=== PATIENT | female | born 1990 | race African-American/Black ===

== ENCOUNTER 2018-06-18 13:08 | Emergency (ER) | payer OTHER ==
[2018-06-18] MEDS ORDERED: Sodium Chloride 0.9% 500 ML IV ONE (13:32)
[2018-06-18] MEDS ORDERED: DiphenhydrAMINE 50 mg/ml Inj IVP STA (13:32)
[2018-06-18 13:40] VITALS: O2SAT 100
--- NOTE | 2018-06-18 13:40 | C.PDOC ---
History Of Present Illness Patient presents to ED c/o left sided headache, similar to pior migraines, since yesterday. Headache is associated with light sensitivity. Patient tried taking Tylenol yesterday without relief. She is currently 12 weeks , . She denies abdominal or pelvic pain, vaginal bleeding/discharge, nausea/ vomiting, dysuria/hematuria, dizziness, visual changes. Time Seen by Provider: 06/18/18 13:32 Chief Complaint (Nursing): Headache History Per: Patient History/Exam Limitations: no limitations Onset/Duration Of Symptoms: Days (2) Current Symptoms Are (Timing): Still Present Severity: Moderate Quality: "Pain" Preceeding Symptoms: Known Migraine Symptoms Associated Symptoms: Photophobia. denies: Blurred Vision, Nausea, Vomiting, Extremity Weakness Past Medical History Reviewed: Historical Data, Nursing Documentation, Vital Signs Vital Signs: Last Vital Signs Temp 98.7 F 06/18/18 13:28 Pulse 88 06/18/18 13:28 Resp 20 06/18/18 13:28 BP 95/62 L 06/18/18 13:28 Pulse Ox 100 06/18/18 13:42 - Medical History PMH: Migraine Surgical History: No Surg Hx Family History: States: No Known Family Hx - Social History Hx Alcohol Use: No Hx Substance Use: No - Immunization History Hx Tetanus Toxoid Vaccination: No Hx Influenza Vaccination: No Hx Pneumococcal Vaccination: No Review Of Systems Constitutional: Negative for: Fever, Chills Cardiovascular: Negative for: Chest Pain Respiratory: Negative for: Shortness of Breath Gastrointestinal: Negative for: Nausea, Vomiting, Abdominal Pain Genitourinary: Negative for: Dysuria, Hematuria, Vaginal Discharge, Vaginal Bleeding Neurological: Positive for: Headache. Negative for: Weakness, Numbness, Change in Speech, Confusion, Seizures, Altered Mental Status, Dizziness Physical Exam - Physical Exam Appears: Well, Non-toxic, In Acute Distress (in mild pain ) Skin: Normal Color, Warm, Dry, No Rash Head: Atraumatic, Normacephalic Eye(s): bilateral: Normal Inspection, PERRL, EOMI Oral Mucosa: Moist Cardiovascular: Rhythm Regular Respiratory: Normal Breath Sounds, No Rales, No Rhonchi, No Wheezing Gastrointestinal/Abdominal: Normal Exam, Bowel Sounds, Soft, No Tenderness Extremity: Normal ROM Neurological/Psych: Oriented x3, Normal Speech, Normal Cognition Gait: Steady ED Course And Treatment O2 Sat by Pulse Oximetry: 100 (RA) Pulse Ox Interpretation: Normal Progress Note: Patient given IV NS bolus, IV Reglan and IV Benadryl. UA ordered and reviewed. Disposition - Disposition Disposition: HOME/ ROUTINE Disposition Time: 14:00 Condition: STABLE Forms: [facility] (Macedonian) - Clinical Impression Clinical Impression: Migraine Physician Patient Turnover Patient Signed Over To: Cris Lizama Handoff Comments: pending reassessment
[2018-06-18] MEDS ORDERED: Sodium Chloride 0.9% 1,000 ML ONE (13:51)
[2018-06-18] MEDS ORDERED: DiphenhydrAMINE 50 mg/ml Inj ONE (13:59)
[2018-06-18 14:30] LABS: SQUAMOUS EPITHIAL 8 /hpf (0-5); URINE BACTERIA MANY (<OCC); URINE BILIRUBIN NEGATIVE (NEGATIVE); URINE BLOOD NEGATIVE (NEGATIVE); URINE CLARITY Clear (Clear); URINE COLOR Straw (YELLOW); URINE GLUCOSE (UA) NORMAL (Normal); URINE LEUKOCYTE ESTERASE NEG Leu/uL (Negative); URINE PROTEIN NEGATIVE (NEGATIVE); URINE UROBILINOGEN NORMAL mg/dL (0.2-1.0)
[2018-06-18 14:45] VITALS: BP 103/65; PULSE 76; RESP 18; TEMP 98.1
== END 2018-06-18 15:06 | disposition home or self-care (01) ==
LOC: C.ER 13:08
DX: O26.891 Other specified pregnancy related conditions, first trimester (principal); G43.909 Migraine, unspecified, not intractable, without status migrainosus; Z3A.12 12 weeks gestation of pregnancy
CPT/HCPCS: 81001; 96361; 96374; 96375; 99284; J1200; J2765; J7040

== ENCOUNTER 2018-12-20 05:53 | Inpatient (IN) | payer BC, OTHER ==
[2018-12-20 06:01] VITALS: BMI 25.7
[2018-12-20] MEDS ORDERED: Lactated Ringer's 1,000 ML IV ONE (06:35)
[2018-12-20] MEDS ORDERED: Oxytocin 30 UNIT 30 UNITS/500 ML BAG IV SCH (07:15)
[2018-12-20 07:35] LABS: BASO % 0.7 % (0.0-2.0); EOS # 0.1 K/uL (0.0-0.7); HEMOGLOBIN 10.2 g/dL (11.0-16.0); LYMPH # 2.2 K/uL (1.0-4.3); LYMPH % 31.4 % (20.0-40.0); MEAN CELL VOLUME 76.3 fL (81.0-99.0); MEAN CORPUSCULAR HEMOGLOBIN 25.1 pg (27.0-31.0); MEAN CORPUSCULAR HGB CONC 32.9 g/dL (33.0-37.0); MONO # 0.5 K/uL (0.0-0.8); MONO % 7.1 % (0.0-10.0); NEUT # 4.2 K/uL (1.8-7.0); NEUT % 59.8 % (50.0-75.0); NRBC % 0.1 % (0.0-2.0); RBC 4.08 Mil/uL (3.80-5.20); RED CELL DISTRIBUTION WIDTH 15.2 % (11.5-14.5); WHITE BLOOD COUNT 7.1 K/uL (4.8-10.8)
[2018-12-20 07:45] LABS: SQUAMOUS EPITHIAL 6 /hpf (0-5); URINE BACTERIA FEW (<OCC); URINE BILIRUBIN NEGATIVE (NEGATIVE); URINE BLOOD NEGATIVE (NEGATIVE); URINE CLARITY Hazy (Clear); URINE COLOR Yellow (YELLOW); URINE GLUCOSE (UA) NORMAL (Normal); URINE LEUKOCYTE ESTERASE NEG Leu/uL (Negative); URINE PROTEIN NEGATIVE (NEGATIVE); URINE UROBILINOGEN NORMAL mg/dL (0.2-1.0)
[2018-12-20] MEDS ORDERED: Lactated Ringer's 1,000 ML IV SCH (07:45)
[2018-12-20 07:51] LABS: ALB/GLOB RATIO 1.2 (1.0-2.1); ALBUMIN 3.3 g/dL (3.5-5.0); ALT/SGPT 14 U/L (9-52); AST/SGOT 26 U/L (14-36); BLOOD UREA NITROGEN 7 mg/dL (7-17); CALCIUM 8.8 mg/dl (8.6-10.4); GFR NON-AFRICAN AMERICAN > 60
[2018-12-20 08:26] LABS: HEPATITIS B SURFACE AG Negative (NEGATIVE)
[2018-12-20] MEDS ORDERED: Oxytocin 30 UNIT 30 UNITS/500 ML BAG IV ONE (10:48)
--- NOTE | 2018-12-20 19:10 | OBHP ---
Datetime: 12/20/2018 15:15 FHR - Baseline A Provider: 140 Vital Signs Provider: Reviewed NICHD Variability Prov Fetus A: Moderate 6-25bpm NICHD Accel Fetus A IP Provider: 15X15 FHR Category Provider Fetus A: Category I NICHD Decel Fetus A IP Provider: None Datetime: 12/20/2018 07:36 IP Adm Impression: , intrauterine ; No Active Labor IP Chief Complaint Other: scheduled induction with Dr. Fuller IP Admit Plan: Admit to unit; Initiate labor protocol Admit Comment, IP Provider: 28 y/o at 38.4 weeks with LEONA 12/31/18 by first trimester ultrasound and consistent with LMP 03/26/18 presents to triage for scheduled induction by Dr. Fuller due to cholest asis. also complicated by macrosomia (last measured weight 8 lbs 4 oz) and slightly i ncreased EVELYN (records to be seen). Since two weeks ago, patient has been having 5-10 mins of sharp RU Q pain that comes at worse after a big meal. Today patient denies such pain. Along with the onset of the bouts of pain, patient also with pruritis of her abdomen, which has resolved. Patient states she has been feeling intense contractions since yesterday that happen frequently, t ankit she is unable to estimate how many times per hour. She also had a lot of mucus with snot-like c onsistency come out of her vagina yesterday and the day before. She states that Dr. Fuller thinks it c ould possibly be passing of the mucus plug. Patient denies vaginal bleeding. Other than what was stated above, patient had a bad migraine headache around 24 weeks and came to [facility] [place] ER. The physician there advised her to take tylenol and drink coffee, and her migraine resolve d and never returned ever since. No headaches today. Additionally, patient was told she was anemic du ring so started on iron supplement at 31 weeks. However, she was constipated so was told to stop it after about a week of taking it. Patient denies abdominal pain, chest pain (just rib pressure with fetus), shortness of breath, jose manuel sea, vomiting, diarrhea, constipation, fever, chills, sweats, muscle aches. Patient has mild edema of bilateral ankles that have been a normal part of physical exam throughout her . 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 Menstrual cycles have been every month for 5 days ever since. Denies h istory of STIs. Patient denies ever having a pap smear; she has not seen a physician regularly before her . She has no primary care physician. FHx: Mother with HTN and stroke secondary to HTN at age 58. Father with DM diagnosed at older age. Meds: PNV Allergies: NKDA Vitals: see above Physical exam: see above A/P: 28 y/o at 38.4 weeks -cholestasis of - Macrosomia -Mild elevated EVELYN -induction of labor protocol per Dr. Fuller -pitocin ordered at 3 mU/min - monitor within normal limits -NST reactive -anesthesia consult - patient requests epidural -GBS neg per clinic labs faxed to triage, no abx indicated -Male baby per blood test and US states patient. She and her decided to not have circumcis ion. Anticipate a vaginal delivery case discussed with Dr. Eugene Tyler DO PGY1 Pt seen and examined with Dr. Tyler and all of her findings and POC were fully discussed with her an d agreed on. Pelvic Type - PN: Not Done Extremities - PN: Normal Abdomen - PN: Abnormal Back - PN: Normal Breast - PN: Normal Lungs - PN: Normal Heart - PN: Normal Thyroid - PN: Not Done Neurologic - PN: Normal HEENT - PN: Not Done General - PN: Normal Membranes, Provider: Intact Contraction Comments Provider: irregular irregular Comments, ACOG Physical Exam: Dr. Fuller cervical exam at about 6:30am /-3 Abdomen: Gravid uterus, healed abdominal excoriations secondary to pruritis. IP Hx Assessment: The History has been Reviewed and is Current EGA AdmitDate IP: 38.3 IP Chief Complaint: Uterine contractions; evaluation; Other Dilatation, Provider: 2 Effacement, Provider: 60 Station, Provider: -3 Genitourinary Exam: Not Done DTRs - PN: Not Done
--- NOTE | 2018-12-20 19:14 | OBADHP ---
Datetime: 12/20/2018 15:15 FHR - Baseline A Provider: 140 Vital Signs Provider: Reviewed NICHD Variability Prov Fetus A: Moderate 6-25bpm NICHD Accel Fetus A IP Provider: 15X15 FHR Category Provider Fetus A: Category I NICHD Decel Fetus A IP Provider: None Datetime: 12/20/2018 07:36 IP Chief Complaint Other: Cholestasis of Macrosomial Admit Comment, IP Provider: 28 y/o at 38.4 weeks with LEONA 12/31/18 by first trimester ultrasound and consistent with LMP 03/26/18 presents to triage for scheduled induction by Dr. Fuller due to cholest asis. also complicated by macrosomia (last measured weight 8 lbs 4 oz) and slightly i ncreased EVELYN (records to be seen). Since two weeks ago, patient has been having 5-10 mins of sharp RU Q pain that comes at worse after a big meal. Today patient denies such pain. Along with the onset of the bouts of pain, patient also with pruritis of her abdomen, which has resolved. Patient states she has been feeling intense contractions since yesterday that happen frequently, t ankit she is unable to estimate how many times per hour. She also had a lot of mucus with snot-like c onsistency come out of her vagina yesterday and the day before. She states that Dr. Fuller thinks it c ould possibly be passing of the mucus plug. Patient denies vaginal bleeding. Other than what was stated above, patient had a bad migraine headache around 24 weeks and came to [facility] ER. The physician there advised her to take tylenol and drink coffee, and her migraine resolve d and never returned ever since. No headaches today. Additionally, patient was told she was anemic du ring so started on iron supplement at 31 weeks. However, she was constipated so was told to stop it after about a week of taking it. Patient denies abdominal pain, chest pain (just rib pressure with fetus), shortness of breath, jose manuel sea, vomiting, diarrhea, constipation, fever, chills, sweats, muscle aches. Patient has mild edema of bilateral ankles that have been a normal part of physical exam throughout her . PMHx: denies PSHx: denies OB hx: primigravida [employer] hx: Menarche at 13 y/o. Menstrual cycles have been every month for 5 days ever since. Denies h istory of STIs. Patient denies ever having a pap smear; she has not seen a physician regularly before her . She has no primary care physician. FHx: Mother with HTN and stroke secondary to HTN at age 58. Father with DM diagnosed at older age. Meds: PNV Allergies: NKDA Vitals: see above Physical exam: see above A/P: 28 y/o at 38.4 weeks -cholestasis of - Macrosomia -Mild elevated EVELYN -induction of labor protocol per Dr. Fuller -pitocin ordered at 3 mU/min - monitor within normal limits -NST reactive -anesthesia consult - patient requests epidural -GBS neg per clinic labs faxed to triage, no abx indicated -Male baby per blood test and US states patient. She and her decided to not have circumcis ion. Anticipate a vaginal delivery case discussed with Dr. Eugene Tyler DO PGY1 Pt seen and examined with Dr. Tyler and all of her findings and POC were fully discussed with her an d agreed on. Pelvic Type - PN: Not Done Extremities - PN: Normal Abdomen - PN: Abnormal Back - PN: Normal Breast - PN: Normal Lungs - PN: Normal Heart - PN: Normal Thyroid - PN: Not Done Neurologic - PN: Normal HEENT - PN: Not Done General - PN: Normal Presentation-Admit: Vertex Membranes, Provider: Intact Contraction Comments Provider: irregular irregular Comments, ACOG Physical Exam: Dr. Fuller cervical exam at about 6:30am /-3 Abdomen: Gravid uterus, healed abdominal excoriations secondary to pruritis. Gestation - Est Wks by US: 38.3 IP Hx Assessment: The History has been Reviewed and is Current IP Chief Complaint: Uterine contractions; Scheduled induction of labor; evaluation; Other Dilatation, Provider: 2 Effacement, Provider: 60 Station, Provider: -3 Genitourinary Exam: Not Done DTRs - PN: Not Done EGA AdmitDate IP: 38.3 IP Adm Impression: , intrauterine ; No Active Labor IP Admit Plan: Admit to unit; Initiate labor protocol
[2018-12-20] MEDS ORDERED: Fentanyl/Bupivacaine HCl 250 ML EPI ONE (23:04)
--- NOTE | 2018-12-20 23:50 | OBPN ---
Datetime: 12/20/2018 23:47 IP Progress Impression: Normal progression of labor IP Informed Consent Obtain: Vaginal Delivery IP Procedures: Artificial ROM IP Progress Plan: Continue present management Membranes, Provider: Ruptured Contraction Comments Provider: q 2-3 min FHR - Baseline A Provider: 150 Gestation - Est Wks by US: 38.3 Presentation-Admit: Vertex IP Progress Note Comment: pt seen adn examiend c/o pressure s/p epidural VSS VE: 4/60/-2 VTX AROM FSE Clear, head applied EFM: Cat I COLE: q 2-3 min A/P @ 38.3 wks in active labor -cont current managmetn Vital Signs Provider: Reviewed; Within Normal Limits FHR Category Provider Fetus A: Category I NICHD Variability Prov Fetus A: Moderate 6-25bpm Dilatation, Provider: 4 Effacement, Provider: 60 Station, Provider: -2 NICHD Decel Fetus A IP Provider: None Datetime: 12/20/2018 19:48 IP Progress Impression Other: Slow progression of labor NICHD Accel Fetus A IP Provider: [id number]
[2018-12-21] MEDS: AMPicillin 2 GM in Sodium Chloride 0.9% 100 ML IVPB SCH ×2 (02:00→21:00)
[2018-12-21] MEDS ORDERED: DiphenhydrAMINE 50 mg/ml Inj IVP STA (02:53)
[2018-12-21] MEDS ORDERED: DiphenhydrAMINE 50 mg/ml Inj ONE (03:02)
[2018-12-21] MEDS ORDERED: Oxytocin 30 UNIT 30 UNITS/500 ML BAG IV ONE (07:22)
[2018-12-21] MEDS ORDERED: Bupivacaine HCl 0.5% PF (10 ml) Inj ONE (08:45)
--- NOTE | 2018-12-21 09:50 | OBPN ---
Datetime: 12/21/2018 09:37 IP Progress Impression: Normal progression of labor IP Procedures: Sterile Vag Exam IP Progress Plan: Anticipate Vaginal Delivery Membranes, Provider: Ruptured Contraction Comments Provider: 1-2 FHR - Baseline A Provider: 170 Gestation - Est Wks by US: 38w 4d Presentation-Admit: Vertex IP Progress Note Comment: Asked to evaluate patietn seconddary to tachycardia Patient received in left lateral position, oxygen by mask and IV bolus near completion room #3; s/ p epidural top off. Cervical exam - as above. Pitocon at 3 mUnits Assessment: 28 y.o. P0, 38w 4d, IOL cholestasis of , polyhydramnios and LGA, in active la bor. AROM 12/20/18 2330 hours - afevrile. tachycardia noted; good variabilitty. Will disontinue pitocin at this time. Plan: 1) Continue present management 2) Anticipate vaginal delivery - discussed with Dr. Jonny MULLER Accel Fetus A IP Provider: 15X15 FHR Category Provider Fetus A: Category II YOHANA Variability Prov Fetus A: Moderate 6-25bpm Dilatation, Provider: 7-8 Effacement, Provider: 90 Station, Provider: 0 YOHANA Decel Fetus A IP Provider: None Datetime: 12/21/2018 06:50 Vital Signs Provider: Reviewed; Within Normal Limits
[2018-12-21] MEDS ORDERED: Lidocaine 2% MPF (5 ml) Inj ONE ×3 (10:53→18:08)
[2018-12-21] MEDS ORDERED: Bupivacaine HCl 0.5% PF (30 ml) Inj ONE (10:54)
[2018-12-21] MEDS ORDERED: Gentamicin 80 mg/2mL Inj. ONE (14:10)
--- NOTE | 2018-12-21 14:13 | OBADHP ---
Datetime: 12/21/2018 14:09 Admit Comment, IP Provider: pt seen and examined c/o pressure s/p peidural VSS VE: 10 EFM:cat I COLE: q 2-3 min A/P @ 38+ wks in active labor strat pushing cont current mangmetn Pelvic Type - PN: Adequate Extremities - PN: Normal Abdomen - PN: Normal Back - PN: Normal Breast - PN: Normal Lungs - PN: Normal Heart - PN: Normal Thyroid - PN: Normal Neurologic - PN: Normal HEENT - PN: Normal General - PN: Normal Presentation-Admit: Vertex Membranes, Provider: Ruptured Contraction Comments Provider: q 2-3 min Gestation - Est Wks by US: 38.4 IP Chief Complaint: Uterine contractions NICHD Variability Prov Fetus A: Moderate 6-25bpm NICHD Decel Fetus A IP Provider: None Dilatation, Provider: 10 Effacement, Provider: 100 Station, Provider: 0 Genitourinary Exam: Normal DTRs - PN: Normal EGA AdmitDate IP: 38.4 IP Adm Impression: Term, intrauterine ; Active labor Datetime: 12/21/2018 09:37 FHR - Baseline A Provider: 170 NICHD Accel Fetus A IP Provider: 15X15 FHR Category Provider Fetus A: Category II Datetime: 12/21/2018 06:50 Vital Signs Provider: Reviewed; Within Normal Limits
--- NOTE | 2018-12-21 15:24 | OBPN ---
Datetime: 12/21/2018 15:20 IP Progress Impression: Normal progression of labor IP Progress Note Comment: delayed entry: pt seen and examined fully dilated feels warm. pt with feta l tachycadic impoved, dc pitocin VS see above VE: /0 A/P @ 38+ wks active labor with chorioamniots tyeonl amp gentamicin oxygen left lateral hydration Datetime: 12/21/2018 14:09 Membranes, Provider: Ruptured Contraction Comments Provider: q 2-3 min Gestation - Est Wks by US: 38.4 Presentation-Admit: Vertex NICHD Variability Prov Fetus A: Moderate 6-25bpm Dilatation, Provider: 10 Effacement, Provider: 100 Station, Provider: 0 NICHD Decel Fetus A IP Provider: None
[2018-12-21] MEDS ORDERED: Midazolam 2 MG/2 ML VIAL ONE (18:11)
[2018-12-21] MEDS ORDERED: Ketamine 50 mg/ml Inj (10 ml) ONE (18:12)
[2018-12-21] MEDS ORDERED: Oxycodone/Acetaminophen 5/325 mg Tab PO PRN (18:32)
--- NOTE | 2018-12-21 18:32 | OBDS ---
DELIVERY PERSONNEL Delivery Doctor: Bhavna Fuller MD Associate Director Financial Aid: ROJAS Fuentes Anesthesiologist: Rayo López MD Resident: Dr Stovall MATERNAL INFORMATION Delivery Anesthesia: Local; Epidural Medications in Delivery: pitocin Placenta Cultured: No RN Comments: temp 100.0 @ 1pm tylenol 2 tabs po given temp 98.2. Provider Comments: pt was fully dilated and pushing. Verbal conset for epistiomy, righ tmediolateral epistoimy preformed after given local anestethci. Atruamtic, spontaneous delivery of head, no nuchal cord noted. Atruatmic, spontaneo delivery of atnerio followed by posteior shoulder followed by deliv er of body. Both oral and nasal passages of the baby were bulb suctioned. umbilical cord was clamped and cut. baby handed to mother on abodmen with rn nicolette. cord blood and cord gases collected and sent x 2. Fundus Firm. spontanoeu deliver of intact placenta with membranes. Fundus firm, good hemsot ais right sulcal laceration with rihgt mediolateral epistomty noted and repaired with 2-0 and 3-0 cho rmic. good hemostaiss, no complicaitns live male cephalic presntation agpars 9,9 ebl 450ml weight of 7lbs 15 ounces LABOR SUMMARY EDC: 12/31/2018 00:00 No. Babies in Womb: 1 Attempted: No Labor Anesthesia: Epidural LABOR INFORMATION Onset of Labor: 12/20/2018 23:30 Complete Dilatation: 12/21/2018 13:54 Cervical Ripening Agents: Cervidil (Annotations: placed intravaginally by DR DAVIS) Oxytocin: Induction Group B Beta Strep: Negative Steroids Given: None Reason Steroids Not Administered: Not Applicable MEMBRANES Membranes Rupture Method: Artificial Rupture of Membranes: 12/20/2018 23:30 Length of Rupture (hrs): 18.42 Amniotic Fluid Color: Clear Amniotic Fluid Amount: Copious Amniotic Fluid Odor: Normal STAGES OF LABOR Stage 1 hrs: 14 Stage 1 min: 24 Stage 2 hrs: 4 Stage 2 min: 1 Stage 3 hrs: 0 Stage 3 min: 10 Total Time in Labor hrs: 18 Total Time in Labor min: 35 VAGINAL DELIVERY Episiotomy: Right Mediolateral Laceration Type: Sulcus Laceration Repair: Yes Initial Vag Sponge Count: 10 Final Vag Sponge Count: 20 Initial Vag Sharps Count: 2 Final Vag Sharps Count: 2 Sponge Count Correct: Yes Sharps Count Correct: Yes BABY A INFORMATION Delivery Date/Time: 12/21/2018 17:55 Method of Delivery: Vaginal Born in Route : No : N/A Forceps: N/A Vacuum Extraction: N/A Shoulder Dystocia : No SHOULDER DYSTOCIA BABY A Infant Delivery Date/Time: 12/21/2018 17:55 PRESENTATION/POSITION BABY A Presentation: Cephalic Cephalic Presentation: Vertex Vertex Position: Right Occipital Anterior Breech Presentation: N/A PLACENTA INFORMATION BABY A Placenta Delivery Time : 12/21/2018 18:05 Placenta Method of Delivery: Spontaneous Placenta Status: Delivered SCORES BABY A Heart Rate 1 min: >100 bpm Resp Effort 1 min: Good Cry Reflex Irritability 1 min: Cough or Sneeze or Pulls Away Muscle Tone 1 min: Active Motion Color 1 min: Body [place], Extremities Blue Resuscitation Effort 1 min: Tactile Stimulation SCORE 1 MIN: 9 Heart Rate 5 min: >100 bpm Resp Effort 5 min: Good Cry Reflex Irritability 5 min: Cough or Sneeze or Pulls Away Muscle Tone 5 min: Active Motion Color 5 min: Body [place], Extremities Blue Resuscitation Effort 5 min: Tactile Stimulation SCORE 5 MIN: 9 INFANT INFORMATION BABY A Gestational Age at Delivery: 38.4 Gestational Status: Term Infant Outcome : Liveborn Condition : Stable Sex: Male IDENTIFICATION/MEDS BABY A ID Band Number: [id number] ID Band Location: Right Arm; Left Leg Sensor Applied: Yes Sensor Number: [id number] Sensor Location : Cord Clamp Vitamin K Given : Not Given Erythromycin Given: Not Given WEIGHT/LENGTH BABY A Birthweight (gms): 3620 Infant Weight (lb): 8 Infant Weight (oz): 0 Length Inches: 20.00 Length cms: 50.8 CORD INFORMATION BABY A No. Cord Vessels: 3 Nuchal Cord : N/A Cord Blood Taken: Yes Infant Suction: Mouth; Nose ASSESSMENT BABY A Infant Complications: None Physical Findings at Delivery: Caput Succedaneum Infant Respirations: Appears Normal Tube Buffer/ALS Called : Yes Care By: Dr Reese Transferred To: Remains with Mother
[2018-12-21] MEDS: Oxycodone/Acetaminophen 5/325 mg Tab PO PRN ×2 (21:26→21:30)
[2018-12-21] MEDS ORDERED: Oxycodone/Acetaminophen 5/325 mg Tab ONE (21:27)
[2018-12-22] MEDS: Benzocaine/Menthol 20%-0.5% Topical Spray (60 ml) TOP PRN (01:58)
[2018-12-22] MEDS: AMPicillin 2 GM in Sodium Chloride 0.9% 100 ML IVPB SCH (02:20)
[2018-12-22] MEDS: Oxycodone/Acetaminophen 5/325 mg Tab PO PRN (05:44)
[2018-12-22 08:27] LABS: EOS % 0.2 % (0.0-4.0); MONO # 0.9 K/uL (0.0-0.8); MONO % 5.6 % (0.0-10.0)
[2018-12-22 08:37] LABS: BASO # 0.1 K/uL (0.0-0.2); BASO % 0.4 % (0.0-2.0); LYMPH % 12.7 % (20.0-40.0); MEAN CELL VOLUME 76.6 fL (81.0-99.0); MEAN CORPUSCULAR HEMOGLOBIN 24.5 pg (27.0-31.0); MEAN PLATELET VOLUME 9.9 fL (7.2-11.7); NEUT % 81.1 % (50.0-75.0); RBC 3.27 Mil/uL (3.80-5.20)
[2018-12-22 09:00] LABS: ALB/GLOB RATIO 1.1 (1.0-2.1); ALBUMIN 2.4 g/dL (3.5-5.0); ALT/SGPT 24 U/L (9-52); AST/SGOT 44 U/L (14-36); BLOOD UREA NITROGEN 5 mg/dL (7-17); CALCIUM 8.1 mg/dl (8.6-10.4); GFR NON-AFRICAN AMERICAN > 60
[2018-12-22] MEDS ORDERED: Potassium Chloride 20 mEq ER Tab PO ONE (09:25)
[2018-12-22] MEDS: Multiple Vitamins Tab PO SCH (10:06)
[2018-12-22 19:55] LABS: BASO % 0.2 % (0.0-2.0); EOS # 0.2 K/uL (0.0-0.7); HEMOGLOBIN 7.7 g/dL (11.0-16.0); LYMPH # 2.2 K/uL (1.0-4.3); LYMPH % 13.8 % (20.0-40.0); MEAN CELL VOLUME 75.7 fL (81.0-99.0); MEAN CORPUSCULAR HEMOGLOBIN 23.6 pg (27.0-31.0); MEAN CORPUSCULAR HGB CONC 31.2 g/dL (33.0-37.0); MEAN PLATELET VOLUME 9.6 fL (7.2-11.7); MONO # 0.9 K/uL (0.0-0.8); MONO % 5.6 % (0.0-10.0); NEUT # 12.9 K/uL (1.8-7.0); NEUT % 79.4 % (50.0-75.0); RBC 3.26 Mil/uL (3.80-5.20); RED CELL DISTRIBUTION WIDTH 15.7 % (11.5-14.5); WHITE BLOOD COUNT 16.3 K/uL (4.8-10.8)
[2018-12-23 00:43] VITALS: O2SAT 99
[2018-12-23 08:50] LABS: BASO % 0.2 % (0.0-2.0); EOS # 0.4 K/uL (0.0-0.7); EOS % 2.1 % (0.0-4.0); LYMPH # 3.2 K/uL (1.0-4.3); LYMPH % 18.5 % (20.0-40.0); MEAN CORPUSCULAR HEMOGLOBIN 24.4 pg (27.0-31.0); MEAN CORPUSCULAR HGB CONC 31.7 g/dL (33.0-37.0); MEAN PLATELET VOLUME 9.6 fL (7.2-11.7); MONO # 0.8 K/uL (0.0-0.8); MONO % 4.5 % (0.0-10.0); NEUT # 12.7 K/uL (1.8-7.0); NEUT % 74.7 % (50.0-75.0); NRBC % 0.1 % (0.0-2.0); RBC 3.29 Mil/uL (3.80-5.20); RED CELL DISTRIBUTION WIDTH 15.4 % (11.5-14.5)
[2018-12-23] MEDS ORDERED: Influenza Vaccine 60 mcg/0.5 mL SYR (4YR UP) IM ONE (09:29)
[2018-12-23] MEDS: Multiple Vitamins Tab PO SCH (09:31)
[2018-12-23] MEDS: Benzocaine/Menthol 20%-0.5% Topical Spray (60 ml) TOP PRN (09:43)
--- NOTE | 2018-12-23 11:41 | OBDCSUM ---
Datetime: 12/23/2018 09:04 Discharged to, Provider: Home Follow up at, Provider: julianna Mukherjee Instr Activity: Normal activity Disch Instr Diet: Regular Discharge Instructions, Provider: Routine instructions given Discharge Diagnosis, Provider: Term Delivered Discharge Time: 12/23/2018 11:30 Follow up in weeks, Provider: 6 weeks Disch Referrals: None Contraception discussed, Prov: Yes Disch Activity Restrictions: No lifting; Minimize stair-climbing; No sexual activity; Nothing in vag robert - Kellogg, tampons, douche Contraception after Delivery: Not Planning to Use
--- NOTE | 2018-12-23 11:42 | OBPPN ---
Datetime: 12/23/2018 11:33 PP Pain Prov: Within normal limits PP Nausea Prov: Denies PP Flatus Prov: Yes PP Breasts Prov: Normal PP Heart Prov: Normal PP Lungs Prov: Normal PP Abdomen/Uterus Prov: Normal PP Lochia Prov: Normal PP Vulva/Perineum Prov: Normal PP CVA Tenderness Prov: Normal PP Extremities Prov: Normal PP C/S Incision Prov: Not Applicable PP Progress Prov: Normal PP Impression Prov: Normal progression; Endometritis PP Progress Note Prov: pt seen aned examien dpreor feelgn better, dneis an yfeer, pain contorl,e no vb, VSS PE se above a/p s/p PPD #2 with asytmocm blodo loss anemia, leukocyists s/p endometritis s/ panbitjucs f/u repaet cbc pain gmanetn possible dc Vital Signs Provider PP: Reviewed; Within Normal Limits Datetime: 12/22/2018 10:29 PP BM Prov: No PP Comments Phys Exam Prov: fundal height2 finger breadths aboves the umbilicus minim alochai non fusl eselnng PP Plan Prov: Continue present management; Antibiotic therapy
[2018-12-23 13:48] LABS: BASO % 0.3 % (0.0-2.0); EOS # 0.3 K/uL (0.0-0.7); EOS % 1.9 % (0.0-4.0); HEMOGLOBIN 7.9 g/dL (11.0-16.0); LYMPH # 1.7 K/uL (1.0-4.3); LYMPH % 12.3 % (20.0-40.0); MEAN CELL VOLUME 77.4 fL (81.0-99.0); MEAN CORPUSCULAR HGB CONC 31.1 g/dL (33.0-37.0); MEAN PLATELET VOLUME 9.1 fL (7.2-11.7); MONO # 0.6 K/uL (0.0-0.8); MONO % 4.2 % (0.0-10.0); NEUT # 11.2 K/uL (1.8-7.0); NEUT % 81.3 % (50.0-75.0); RBC 3.29 Mil/uL (3.80-5.20); RED CELL DISTRIBUTION WIDTH 15.5 % (11.5-14.5); WHITE BLOOD COUNT 13.9 K/uL (4.8-10.8)
[2018-12-23 20:14] VITALS: BP 113/79; PULSE 85; RESP 18
[2018-12-23 22:03] VITALS: TEMP 97.8
== END 2018-12-23 17:15 | disposition home or self-care (01) | DRG 805 ==
LOC: C.EROB 05:53 → C.4D 06:20 → C.4M 12-22 01:30
PROVIDERS: ADMIT Obstetrics & Gynecology; ATTEND Obstetrics & Gynecology
PROC: 10907ZC Drainage of Amniotic Fluid, Therapeutic from Products of Conception, Via Natural or Artificial Opening (ICD-10-PCS; 2018-12-20)
PROC: 3E0P7VZ Introduction of Hormone into Female Reproductive, Via Natural or Artificial Opening (ICD-10-PCS; 2018-12-20)
PROC: 10E0XZZ Delivery of Products of Conception, External Approach (ICD-10-PCS; principal; 2018-12-21)
PROC: 0W8NXZZ Division of Female Perineum, External Approach (ICD-10-PCS; 2018-12-21)
DX: O26.62 Liver and biliary tract disorders in childbirth (principal); K83.1 Obstruction of bile duct; O75.3 Other infection during labor; O86.12 Endometritis following delivery; D62 Acute posthemorrhagic anemia; O76 Abnormality in fetal heart rate and rhythm complicating labor and delivery; O40.3XX0 Polyhydramnios, third trimester, not applicable or unspecified; O99.02 Anemia complicating childbirth; D64.9 Anemia, unspecified; O12.04 Gestational edema, complicating childbirth; O36.63X0 Maternal care for excessive fetal growth, third trimester, not applicable or unspecified; Z3A.38 38 weeks gestation of pregnancy; Z37.0 Single live birth